=== PATIENT | female | born 1985 | race Caucasian/White ===

== ENCOUNTER 2017-10-20 02:14 | Emergency (ER) | payer BC, OTHER ==
[~2017-10-20] VITALS: Ht 175.3 cm; Wt 111.1 kg
[2017-10-20] MEDS ORDERED: KETOROLAC TROMETH 60MG/2ML VIAL IM ONE ×2 (04:07→04:15)
[2017-10-20] MEDS ORDERED: TRIAMCINOLONE 40MG/ML 1ML VIAL ONE (04:08)
[2017-10-20] MEDS ORDERED: LIDOCAINE 2% (LOCAL ANESTH.) PF 5ml SDV ONE (04:09)
[2017-10-20] MEDS ORDERED: TRIAMCINOLONE 40MG/ML 1ML VIAL IM ONE (04:15)
[2017-10-20] MEDS ORDERED: LIDOCAINE 1% (LOCAL ANESTH.) PF 5ml SDV IJ ONE (04:15)
[2017-10-20 04:28] VITALS: BP 110/83
== END 2017-10-20 06:26 | disposition home or self-care (01) ==
LOC: ER 02:17
DX: S33.5XXA Sprain of ligaments of lumbar spine, initial encounter (principal); M79.1 Myalgia; M54.16 Radiculopathy, lumbar region; X58.XXXA Exposure to other specified factors, initial encounter; Y93.89 Activity, other specified; Y92.89 Other specified places as the place of occurrence of the external cause; Y99.8 Other external cause status
CPT/HCPCS: 72100; 99284; J1885; J3301

== ENCOUNTER 2018-08-17 04:03 | Emergency (ER) | payer BC, OTHER ==
[~2018-08-17] VITALS: Ht 175.3 cm; Wt 111.1 kg
[2018-08-17 05:30] VITALS: BP 111/69
[2018-08-17 05:54] LABS: Hepatitis B Surface Antibody Positive
[2018-08-17 06:43] LABS: Hepatitis B Surface Antigen Negative (Negative)
== END 2018-08-17 06:38 | disposition home or self-care (01) ==
LOC: ER 04:03
DX: S00.83XA Contusion of other part of head, initial encounter (principal); J45.909 Unspecified asthma, uncomplicated; Z77.22 Contact with and (suspected) exposure to environmental tobacco smoke (acute) (chronic); Y04.0XXA Assault by unarmed brawl or fight, initial encounter; Y93.89 Activity, other specified; Y92.89 Other specified places as the place of occurrence of the external cause; Y99.0 Civilian activity done for income or pay
CPT/HCPCS: 36415; 86703; 86706; 86803; 87340

== ENCOUNTER 2020-05-11 20:22 | Emergency (ER) | payer OTHER ==
[~2020-05-11] VITALS: Ht 175.3 cm; Wt 121.6 kg
[2020-05-11 21:12] VITALS: BP 125/83
== END 2020-05-11 21:50 | disposition home or self-care (01) ==
LOC: ER 20:28
DX: J02.9 Acute pharyngitis, unspecified (principal); R19.7 Diarrhea, unspecified; R05 Cough; Z87.891 Personal history of nicotine dependence; Z20.828 Contact with and (suspected) exposure to other viral communicable diseases
CPT/HCPCS: 36415; 71045; 87426; 99284; U0003

== ENCOUNTER → 2022-01-07 | Emergency (ER) | payer OTHER ==
[~2022-01-07] VITALS: Ht 175.3 cm; Wt 111.1 kg
[~2022-01-07] MED LIST: IBUP800T27 PO; IBUPROFEN 800 MG TAB PO ONE
[2022-01-07 17:17] VITALS: BP 133/79
== END | disposition home or self-care (01) ==
LOC: ER 17:01
DX: S90.121A Contusion of right lesser toe(s) without damage to nail, initial encounter (principal); J45.909 Unspecified asthma, uncomplicated; Z98.51 Tubal ligation status; Z87.891 Personal history of nicotine dependence; W08.XXXA Fall from other furniture, initial encounter; Y93.89 Activity, other specified; Y92.89 Other specified places as the place of occurrence of the external cause; Y99.8 Other external cause status
CPT/HCPCS: 73630

== ENCOUNTER → 2024-05-20 | Day surgery (SDC) | payer OTHER ==
[~2024-05-20] VITALS: Ht 175.3 cm; Wt 131.1 kg
[~2024-05-20] MED LIST changes: +BUPIVACAINE HCL 50 ML ONE; +DexAMETHasone SOD PHOS 10MG/1ML VIAL INJ ONE; +EPINEPHrine HCL 1 MG/1 ML AMP ONE; +GLYCOPYRROLATE 0.2 MG/ML 1ML VIAL ONE; +HYDROmorphone HCL 2 MG/ML VL/or syr IV PRN; +HYDROmorphone HCL 2 MG/ML VL/or syr ONE; -IBUP800T27 PO; -IBUPROFEN 800 MG TAB PO ONE; +KETOROLAC TROMETH 30 MG/ML 1ML VIAL ONE; +LIDOCAINE 1% INJ PF 5ML AMP ONE; +METO25TA93 PO; +MIDAZOLAM HCL 2MG/2ML 2ml VIAL (1mg/ml) ONE; +MORPHINE SULF PF 5 MG/10 ML VIAL ONE; +NALOXONE HCL 0.4 MG/ML VIAL IV PRN; +NEOSTIGMINE 1 MG/ML INJ (10mg/10ML VIAL) ONE; +ONDANSETRON HCL 4 MG/2 ML VIAL IV ONE; +ONDANSETRON HCL 4 MG/2 ML VIAL ONE; +PROPOFOL 10 MG/ML 20 ML IV ONE; +ROCURONIUM 10MG/ML 10ML VIAL IV ONE; +ROPIVACAINE 0.5% (5MG/ML) 20ML AMPULE IJ ONE; +SEMA2INJ3 SC; +SUGAMMADEX 200mg/2ml Vial (100MG/ML) IV ONE; +TRANEXAMIC ACID 1,000 mg/10ml INJ VIAL IV ONE; +ceFAZolin 2 GM/D5W100ml 100 ML IV ONE; +ePHEDrine SULFATE 50 MG/ML AMP IV PRN
[2024-05-20 11:08] VITALS: TEMP 97.4; O2SAT 100
--- NOTE | 2024-05-20 11:14 | DVHOP2 ---
Operative Report - 2 Report Details Date: 05/20/24 Preop Diagnosis: Right shoulder rotator cuff tear, possible proximal biceps tendon tear Postop Diagnosis: Right shoulder rotator cuff tear, possible proximal biceps tendon tear Surgeon: Oracio Begum MD General Labor Forklift Operator: Naima Gant, Physician General Labor Forklift Operator Anesthesiologist: Dr Oksana BELLO Anesthesia: General, Regional Implant: Siddiqi and nephew [place] with Vicryl delano and peek lateral row implant Consent: The patient was informed of the risks and benefits of the procedure. These include but are not limited to complications of anesthesia, postoperative infection, incomplete relief of symptoms, recurrence of symptoms, damage to blood vessels, nerves and tendons, deep venous thrombosis, pulmonary embolism and possible need for repeat surgery in the future. Complications: None Estimated Blood Loss: Less than 5 mL Indications for Surgery: The patient is a 38-year-old female who presented to the clinic with a history of chronic shoulder pain. She had failed thorough nonoperative management. Clinical and radiological evaluation demonstrated significant rotator cuff tendinitis, interstitial tear and possible proximal biceps tendon tear with SLAP tear. Nonoperative and operative management options were discussed. Surgery in the form of shoulder arthroscopy with subacromial decompression, possible proximal biceps tenodesis, rotator cuff repair using collagen augmentation was discussed with her. Benefits, risks and treatment alternatives were discussed. Specific complications of the surgery such as neurovascular injury, infection, arthrofibrosis, loss of limb or life were discussed. The patient decided to proceed with the surgical option. Name of Procedure Performed Right shoulder arthroscopy with rotator cuff repair using collagen augmentation and subacromial decompression, partial synovial debridement, labral debridement and rotator cuff debridement Procedure Details Procedure Details: The patient was identified in the preoperative holding area and the surgical site was marked. The consent was verified. The patient was brought into the operating room and placed supine on the operating table. General anesthesia was administered. The beachchair attachment was applied to the operating table. The patient was now brought up into the beachchair position, approximately 60 degrees. The arm was prepped and draped in the usual sterile manner. The arm was placed in the attachment for the spyder, mechanical arm arrington. The extremity was examined under anesthesia and was found to have good passive range of motion. A standard posterior portal established. A standard anterior portal was established. A 30 degree scope was inserted. A probe was inserted and the findings are as follows 1. Normal biceps tendon 2. Intact subscapularis 3. Intact glenohumeral joint 4. Partial approximately 30% articular surface rotator cuff, anterior half of the supraspinatus. 5. Degenerative superior labral tear, type II, minimally displaced Based on these findings I did a synovial debridement. Labral debridement of the superior labrum was carried out. Undersurface debridement of the rotator cuff was also carried out. Tenotomy or tenodesis was not considered necessary due to the minimal nature of the tear. A PDS stitch was passed through the partial articular rotator cuff tear seen in the anterior aspect of the supraspinatus. Subacromial space was entered. Significant bursitis was noted. Thorough bursectomy was carried out. No bursal sided tear was noted. Based on the tear pattern, MRI findings, I decided to proceed with collagen patch augmentation assisted rotator cuff repair. For this a lateral portal was established. Then the superior portal was established. The implant was inserted from the lateral portal. It was fixed to the medial tendon with the help of Vicryl delano as per tapper helper guidelines. 6-7 delano were used. The lateral portion of the collagen graft was affixed to the the bone using 1 bone staple. Excellent fixation was noted. Subacromial decompression was completed. Acromioplasty was done with the help of a bur, approximately 6 mm of downsloping acromion was removed. Thorough irrigation was given the skin incisions were closed with 3-0 nylon. Surgical dressing was applied. The arm was placed in a shoulder immobilizer. Condition Good Disposition Home ORACIO BEGUM MD May 20, 2024 11:14
[2024-05-20] MEDS: BUPIVACAINE 0.5% INJ 50ML VIAL IJ ONE (11:21)
[2024-05-20 12:23] VITALS: BP 121/63; PULSE 62; RESP 22; O2SAT 98
== END | disposition home or self-care (01) ==
LOC: SUR 07:13
PROVIDERS: ATTEND Orthopaedic Surgery Sports Medicine
DX: M75.111 Incomplete rotator cuff tear or rupture of right shoulder, not specified as traumatic (principal); G89.29 Other chronic pain; M19.011 Primary osteoarthritis, right shoulder; S43.431A Superior glenoid labrum lesion of right shoulder, initial encounter; M75.51 Bursitis of right shoulder; E66.9 Obesity, unspecified; Z87.891 Personal history of nicotine dependence; J45.909 Unspecified asthma, uncomplicated; Z68.41 Body mass index [BMI] 40.0-44.9, adult; Z99.81 Dependence on supplemental oxygen; Y92.89 Other specified places as the place of occurrence of the external cause; X58.XXXA Exposure to other specified factors, initial encounter; Y93.89 Activity, other specified; Y99.8 Other external cause status
CPT/HCPCS: 29823; 29826; 29827; C1713; J0171; J1100; J1171; J1885; J2250; J2270; J2405; J2704; J2795; J3490; A4565